=== PATIENT | female | born 1960 | race Caucasian/White ===

== ENCOUNTER 2018-09-11 11:49 | Emergency (ER) | payer OTHER, SELFPAY ==
[2018-09-11 11:52] VITALS: BP 127/85; PULSE 83; RESP 16; TEMP 36.7; O2SAT 97; BMI 32.9
--- NOTE | 2018-09-11 12:09 | ED.DCSUM_ITS ---
- ER Visit Summary Date of Service: 09/11/18 Chief Complaint: Right eye injury History of Present Illness: The patient is a 58 F presents to the emergency department with right eye injury. Patient states that she was burning brush. She states she went to break a branch snapped back and hit her in the eye. She does wear glasses but was not wearing them. She states that she is felt like she may have scratched her eye. She describes mild blurry vision. She is otherwise healthy. She denies any other injury. She denies any other symptoms. Physical Examination: Tetracaine was instilled in the right eye. Select examination was performed. Floor seen was instilled. Under slit-lamp, patient has multiple injuries that are visible. The patient has a 2 mm corneal abrasion at the 8 o'clock position overlying the iris. There is a 6 mm corneal laceration overlying the visual access. There is a 3 mm corneal abrasion at the 2 o'clock position overlying the iris. These do not travel deep. There is no evidence of contamination. Her pupil has no disruption or abnormal shape. There is no hyphema or hypopyon. There is no evidence of retained foreign body. Test Results: [] Emergency Department Course and Treatment: After slit-lamp examination, I did discuss the patient with Dr. Randhawa she is going to need very close follow-up. He agreed with plan for Pseudomonas coverage with eyedrops. Patient will be seen tomorrow in the office. I did disability counselor her that if anything changes, she is free to call Dr. Randhawa and he states that he would see her in the office tonight. The patient is comfortable with this plan of care. She will be discharged home. Treatment Plan: [] Disposition: Discharge Impression: 1. Corneal abrasion 2. Corneal laceration This note was generated with Cod[employer] dictation software. It may contain incorrect words, spelling, and punctuation that were not noted in review of the chart prior to signing ED Disposition - Plan for ED Patient: Disposition: Home or Assisted Living Instructions: Corneal Abrasion Prescriptions: Oxycodone HCl/Acetaminophen [Percocet 5/325] 1 tab PO Q6H PRN PRN 3 Days #12 tab PRN Reason: Pain Prescription Printed Tobramycin [Tobrex] 1 drp OPHTHALMIC (EYE) CONT 5 Days #5 ml Prescription Printed Referrals: Rome Randhawa MD [STAFF PHYSICIAN] -
[2018-09-11] MEDS: Fluorescein 1 MG STRIP 1 STRIP RIGHT EYE (12:39)
[2018-09-11] MEDS: Tetracaine 0.5% Ophthalmic Bottle 1 DRP RIGHT EYE (12:39)
[2018-09-11 13:05] VITALS: PULSE 88; RESP 16; O2SAT 98
[2018-09-11] MEDS: Tobramycin Sulf 0.3% 5ML OPTH.BTL 2 DRP RIGHT EYE (13:18)
--- NOTE | 2018-09-11 13:19 | ED.RN ---
REVIEWED D/C INSTRUCTIONS, FOLLOW UP CARE, PRESCRIPTIONS, AND S/S THAT WOULD WARRANT A RETURN TO THE ED WITH PT. PT VERBALIZED AN UNDERSTANDING AND DENIES FURTHER QUESTIONS FOR THIS RN. PT SKIN P/W/D, RESP EVEN AND UNLABORED, PT A&O X 3, NO DISTRESS NOTED. PT AMBULATED OUT OF ED, GAIT STEADY.
== END 2018-09-11 13:20 | disposition home or self-care (01) ==
LOC: ED 12:22
PROVIDERS: Emergency Provider Emergency Medicine
DX: S05.01XA Injury of conjunctiva and corneal abrasion without foreign body, right eye, initial encounter (principal); S05.31XA Ocular laceration without prolapse or loss of intraocular tissue, right eye, initial encounter; W22.8XXA Striking against or struck by other objects, initial encounter; Y93.9 Activity, unspecified; Y92.9 Unspecified place or not applicable; I10 Essential (primary) hypertension; Z79.899 Other long term (current) drug therapy
CPT/HCPCS: 99283; A4216

== ENCOUNTER 2020-01-06 10:36 | Emergency (ER) | payer OTHER, SELFPAY ==
[2020-01-06 10:37] VITALS: BP 133/73; PULSE 112; RESP 16; TEMP 36.2; O2SAT 97; BMI 30.9
--- NOTE | 2020-01-06 10:53 | CT_ITS ---
STUDY: CT ABDOMEN AND PELVIS WITH CONTRAST REASON FOR EXAM: Female, 59 years old. DIARRHEA X 5 DAYS. HISTORY OF DIVERTICULITIS. PRIOR APPENDECTOMY,UTERUS AND RIGHT OVARY REMOVED RADIATION DOSAGE (If Supplied By Facility): CTDIvol = ( 13.71 ) mGy, DLP = ( 989.71 ) mGycm TECHNIQUE: Transaxial images were obtained from the dome of the diaphragm to the symphysis pubis without oral contrast. IV 100mL Isovue-370 was administered. Sagittal and coronal images were reconstructed. Individualized dose optimization techniques were used for this CT. COMPARISON: 04/01/2012 FINDINGS: The visualized lung bases are unremarkable. The visualized portions of the heart are within normal limits. Normal liver. Normal gallbladder and extrahepatic biliary system. Normal spleen. Normal pancreas. Normal bilateral adrenal glands. Normal right kidney. Normal left kidney. Marked abnormality of the gastric antrum with wall thickening and edema and possible ulceration. Normal small intestine. Under distended loops of the descending and rectosigmoid colon with questionable pericolonic fat stranding and edema. Findings can be seen with diarrhea and/or colitis. No evidence of diverticulitis or perforation. The appendix is not clearly visualized Normal abdominal aorta. Normal inferior vena cava. Normal retroperitoneum. Normal urinary bladder. Status post hysterectomy Normal abdominal wall. Normal osseous structures. CT/Abdomen/Pelvis W IV Cont ONLY IMPRESSION: 1. Marked abnormality of the gastric antrum with wall thickening and edema and possible ulceration. Endoscopy should be considered to further evaluate when possible 2. Underdistended loops of descending and rectosigmoid colon with questionable pericolonic fat stranding and edema. Can be a sequela of diarrhea and/or colitis. No evidence of diverticulitis. Recommend clinical correlation Electronically Signed: Moose Rachel DO at 11:56 EDT Tel , Service support ,
--- NOTE | 2020-01-06 10:56 | ED.VIS.GI ---
History of Present Illness Informant: Patient - Abdominal Pain/Flank Pain Onset: Days - 5 days Context: Gradual Onset Timing: Intermittent Quality: Cramping Location: Diffuse Current Severity: Severe Maximum Severity: Severe Worsened by: Food Relieved by: Nothing, Remaining Still - Nausea/Vomiting/Emesis GI Symptom: Nausea. Negative for: Vomiting - Diarrhea/Melena/Hematochezia GI Symptom: Diarrhea Onset: Days - 5 days Stool Quality: Loose, Watery Severity: Severe Episodes: 3 Associated Symptoms: Negative for: Dysuria, Frequency, Hematuria, Urgency Narrative: 59-year-old female presents with abdominal pain and diarrhea. Patient was diagnosed earlier this month with diverticulitis completed a course of Cipro and Flagyl and felt improved. However over the last 5 days she has developed worsening abdominal pain and diarrhea. The pain is diffuse and crampy in nature. Nothing really makes it better or worse. She has had decreased appetite. She had a fever 100.8 ?F last evening. No melena or hematochezia. No urinary symptoms. No vomiting. She was tested negative for Covid and flu earlier this week by her primary. She was taking probiotics. She has not had improvement. Prior similar symptoms: Yes Recent Illness/Hospitalization: No <Alex Dey - Last Filed: 01/06/20 12:19> <Eladio Werner - Last Filed: 01/06/20 12:40> Chief Complaint: Diarrhea Past Medical History Prior records reviewed: Yes Past Medical History: - - Hypertension Surgical History: hysterectomy Lives: With Family Smoking Status: Never smoker Alcohol: None Drugs: None <Alex Dey - Last Filed: 01/06/20 12:19> <Eladio Werner - Last Filed: 01/06/20 12:40> - Allergies and Home Meds Allergies/Adverse Reactions: Allergies Penicillins [PCN] Allergy (Verified 01/06/20 10:41) Hives Primary Care Physician: Alex Stokes MD [STAFF PHYSICIAN] - As soon as possible Review of Systems General: Reports: Chills, Fever. Denies: Sweats Eyes: Denies: Visual changes - bilaterally, Diplopia ENT: Denies: Rhinorrhea, Sore throat Cardiovascular: Denies: Chest pain, Palpitations Respiratory: Denies: Dyspnea, Cough, Dyspnea on exertion Gastrointestinal: Reports: Abdominal pain, Nausea, Diarrhea. Denies: Vomiting, Constipation, Melena, Hematochezia Genitourinary: Denies: Dysuria, Hematuria, Frequency Musculoskeletal: Denies: Myalgias, Arthralgias, Neck pain, Back pain, Swelling, Extremity Pain Skin: Denies: Rash, Wounds Neurological: Denies: Headache, Weakness, Numbness <Alex Dey - Last Filed: 01/06/20 12:19> Physical Exam Vital Signs/Narrative: Vital Signs Temp Pulse Resp BP Pulse Ox 01/06/20 10:37 97.2 F L 112 H 16 133/73 H 97 Inital Vital Signs reviewed: Yes General: Well nourished, Well developed, No Acute Distress Head: Normocephalic, Atraumatic Eyes: Perrl, EOMI ENT: Moist mucous membranes, No rhinorrhea Neck: Supple, Nontender Cardiovascular: Regular rate, Regular rhythm, No murmurs Respiratory: No distress, CTA bilaterally, Chest nontender Abdomen: Soft, Nondistended, Normal bowel sounds, Tender - Diffusely tender no focal tenderness no guarding no rebound Back: Nontender, Normal Inspection Extremities: Nontender, No edema Skin: Normal color, No rash Neurological: Alert, Oriented x3, Cranial nerves II-XII grossly intact, Normal Strength, Normal Sensation Psychological: Normal affect, Normal Mood <Alex Dey - Last Filed: 01/06/20 12:19> Vital Signs/Narrative: Vital Signs Temp Pulse Resp BP Pulse Ox 01/06/20 10:37 97.2 F L 112 H 16 133/73 H 97 <Eladio Werner - Last Filed: 01/06/20 12:40> Diagnostic/Tx/Re-eval CT: Abdomen and Pelvis - Medical Decision Making Patient was treated with fluids morphine and Zofran. Laboratory work-up shows a white blood cell count of 12. The rest of her labs are unremarkable. We did send stool samples for culture and C. difficile. CT scan of the abdomen and pelvis with IV contrast demonstrates marked abnormality of the gastric antrum with wall thickening and edema possible ulceration. Endoscopy should be considered for further evaluation when possible. It also demonstrated under distended loops of descending and rectosigmoid colon with questionable pericolonic fat stranding and edema. Can be a sequela of diarrhea and/or colitis but there is no evidence of diverticulitis. Repeat exam patient feels improved. Abdomen is soft and nontender. Patient tolerating by mouth. Patient will be discharged home with Protonix and Augmentin and referred to surgery for follow-up and outpatient endoscopy and colonoscopy. Stool cultures were sent. She will be sent home with analgesia. Patient agreeable with plan all questions answered return precautions given. <Alex Dey - Last Filed: 01/06/20 12:19> - Medical Decision Making Attending note: I saw the patient independently. Patient has diarrhea with abdominal pain. History of gastric ulcers. Upper and lower endoscopies done 2 years ago by her physician. Vital signs reviewed. Abdomen diffusely tender. No guarding or rebound. Otherwise exam unremarkable. Diarrheal illness Labs, CT. Patient will be treated for gastric ulcer with PPI. She was treated with antibiotics to cover colitis. Stool studies are pending. She will follow-up for outpatient endoscopy and for her elevated liver enzymes. Return for any new or worsening issues. <Eladio Werner - Last Filed: 01/06/20 12:40> ED Disposition <Alex Dey - Last Filed: 01/06/20 12:19> <Eladio Werner - Last Filed: 01/06/20 12:40> - Plan for ED Patient: Disposition: Home or Assisted Living Diagnosis: Colitis, PUD (peptic ulcer disease) Instructions: ED Diarrhea Bacterial, ED PEPTIC ULCER vs GASTRITIS Prescriptions: Ciprofloxacin [Cipro] 500 mg PO BID #14 tab Transmission Status: Received by [facility] metroNIDAZOLE [Flagyl] 500 mg PO Q8H #21 tab Transmission Status: Received by [facility] Oxycodone HCl/Acetaminophen [Percocet 5/325] 1 tab PO Q6H PRN PRN 3 Days #12 tab PRN Reason: Pain Transmission Status: Received by [facility] Omeprazole [Prilosec] 40 mg PO DAILY #60 cap Transmission Status: Received by [facility] Ondansetron [Zofran Odt] 4 mg PO Q8H PRN PRN #10 tab PRN Reason: Nausea Transmission Status: Received by [facility] Referrals: Alex Stokes MD [STAFF PHYSICIAN] - As soon as possible
[2020-01-06 11:07] LABS: Hematocrit 41.7 % (37-47); Hemoglobin 13.6 g/dL (12.0-15.0); Mean Corp Hgb Conc 32.6 g/dL (32-36); Mean Corpuscular Volume 85.8 fL (81-99); Mean Platelet Vol. 9.8 fl (6.2-12.0); Mucous, Urine 0 SEEN /hpf (<or=2+); POSITIVE DIFFERENTIAL YES; POSITIVE MORPHOLOGY YES; Platelet Count 403 K/mm3 (150-450); RBC Distribution Width CV 13.2 % (11.6-14.6); Red Blood Count 4.86 M/mm3 (4.2-5.4); White Blood Count 12.8 K/mm3 (4.4-11.0)
[2020-01-06] MEDS: Morphine 4 MG/ML Syringe IV (11:11)
[2020-01-06] MEDS: Ondansetron 4 MG/2 ML Vial IV (11:11)
[2020-01-06] MEDS: 0.9% Normal Saline 1,000 ML 1000 ML IV (11:11)
[2020-01-06 11:15] LABS: Color, Urine Yellow (Yellow); Glucose, Dipstick Normal (Normal); Ketone-Dipstick Negative (Negative); Leukocyte Esterase-Dipstick 25 /ul (Negative); Nitrite-Dipstick Negative (Negative); Occult Blood-Urine 250 /ul (Negative); Protein-Dipstick 30 mg/dl (Negative); Urine Bilirubin Dipstick Negative (Negative); Urine Clarity Clear (Clear); Urine Urobilinogen Normal (Normal); Urine pH 6.5 (5.0 - 8.0)
[2020-01-06 11:23] LABS: Hyaline Cast 0-5 SEEN /lpf (0-5); Red Blood Cells-Urine 25-50 SEEN /hpf (0-5); Renal Epithelial Cells 0-5 SEEN /hpf (0-5); Squamous Epithelial Cells - UA 0-5 SEEN /hpf (5-10); White Blood Cells 0-5 SEEN /hpf (0-5)
[2020-01-06 11:24] LABS: Bacteria 2+ /hpf (None Seen)
[2020-01-06 11:25] LABS: ALB/GLOB Ratio 0.7 RATIO (0.9-2.4); AST(SGOT) 56 U/L (15-37); Alanine Aminotransfer ALT/SGPT 100 U/L (13-56); Albumin, Serum 2.9 g/dL (3.2-5.0); Alkaline Phosphatase 130 U/L (45-117); Anion Gap 8 (5-15); BUN 9 mg/dL (7-18); BUN/Creat Ratio 8.7 RATIO (10-20); Calcium,Total 9.1 mg/dL (8.5-10.1); Chloride 100 mmol/L (98-107); Creatinine, Serum 1.04 mg/dL (0.55-1.02); EST Glomerular Filtration Rate 58 mL/min (>60); Est Glom Filt Rate - Afr Amer 70 mL/min (>60); Globulin 3.9 g/dL (2.2-4.2); Glucose 153 mg/dL (74-106); Lipase 37 U/L (73-393); Potassium 3.4 mmol/L (3.5-5.1); Protein, Total 6.8 g/dL (6.4-8.2); Sodium Level 135 mmol/L (136-145)
[2020-01-06 11:28] LABS: Differential Indicated MANUAL DIFF
[2020-01-06 11:33] LABS: Basophil 1 % (0-1); Eosinophil 2 % (0-5); Lymphocyte 21 % (19-41); Metamyelocyte 1 % (0-1); Monocyte 16 % (0-10); Neutrophil-Band 38 % (0-5); Neutrophil-Segmented 21 % (47-70); Total Cells Counted 100 (MANUAL DIFF)
[2020-01-06 11:34] LABS: Absolute Lymphocyte Count 2.69 X10^3/uL (0.83-4.51); Absolute Neutrophil Count 7.5 X10^3/uL (2.0-7.7)
[2020-01-06 11:36] LABS: Platelet Estimate ADEQUATE (ADEQ); Reactive Lymphocyte 1+
[2020-01-06 11:38] LABS: Dohle Bodies 1+; Red Cell Morphology NORM C+C NORMAL (NORM C&C)
[2020-01-06 12:52] VITALS: BP 106/69; PULSE 85; RESP 16; O2SAT 96
--- NOTE | 2020-01-06 12:53 | ED.RN ---
IV DC'ED, CATHETER INTACT, SMALL GAUZE DRESSING PLACED. DISCHARGE INSTRUCTIONS GIVEN TO AND REVIEWED WITH PATIENT, PATIENT DENIES QUESTIONS OR CONCERNS AND VOICES UNDERSTANDING OF DISCHARGE INSTRUCTIONS. PT AMBULATES OUT OF ROOM WITHOUT DIFFICULTY.
--- NOTE | 2020-01-06 17:20 | ED.DCSUM_ITS ---
- ER Visit Summary Date of Service: 01/06/20 Chief Complaint: [] History of Present Illness: The patient is a 59 F [] Physical Examination: [] Test Results: [] Emergency Department Course and Treatment: [] Treatment Plan: [] Disposition: [] Impression: [] This note was generated with [employer]Wings.comation software. It may contain incorrect words, spelling, and punctuation that were not noted in review of the chart prior to signing ED Disposition - Plan for ED Patient: Disposition: Home or Assisted Living Diagnosis: Colitis, PUD (peptic ulcer disease) Instructions: ED Diarrhea Bacterial, ED PEPTIC ULCER vs GASTRITIS Prescriptions: Ciprofloxacin [Cipro] 500 mg PO BID #14 tab Transmission Status: Received by [facility] metroNIDAZOLE [Flagyl] 500 mg PO Q8H #21 tab Transmission Status: Received by [facility] Oxycodone HCl/Acetaminophen [Percocet 5/325] 1 tab PO Q6H PRN PRN 3 Days #12 tab PRN Reason: Pain Transmission Status: Received by [facility] Omeprazole [Prilosec] 40 mg PO DAILY #60 cap Transmission Status: Received by [facility] Vancomycin HCl 125 mg PO 4X/DAY #40 cap Transmission Status: Pending to [facility] Ondansetron [Zofran Odt] 4 mg PO Q8H PRN PRN #10 tab PRN Reason: Nausea Transmission Status: Received by [facility] Referrals: Alex Stokes MD [STAFF PHYSICIAN] - As soon as possible
--- NOTE | 2020-01-06 17:42 | ED.RN ---
LAB CALLS STATING STOOL STUDIES + FOR C-DIFF. Jessica TAMEZ MADE AWARE, INSTRUCTED TO DISCONTINUE CIPRO AND FLAGYL, VANCOMYCIN ORDERED TO PATIENTS PREFERRED PHARMACY. PATIENT MADE AWARE AND REPORTS UNDERSTANDING OF INSTRUCTIONS.
[2020-01-08 14:01] LABS: Pathologist Review Reviewed
== END 2020-01-06 12:54 | disposition home or self-care (01) ==
PROVIDERS: Emergency Provider Physician Assistant Medical
DX: K52.9 Noninfective gastroenteritis and colitis, unspecified (principal); K27.9 Peptic ulcer, site unspecified, unspecified as acute or chronic, without hemorrhage or perforation; I10 Essential (primary) hypertension; Z79.899 Other long term (current) drug therapy; Z87.19 Personal history of other diseases of the digestive system
CPT/HCPCS: 74177; 80053; 81001; 83690; 85025; 87493; 87506; 96361; 96374; 96375; 99282; J7030; Q9967; A4216; J2405

== ENCOUNTER 2022-09-07 08:38 | Emergency (ER) | payer OTHER, SELFPAY ==
[2022-09-07 08:39] VITALS: BP 107/80; PULSE 99; RESP 18; TEMP 36.3; O2SAT 96; BMI 34.7
--- NOTE | 2022-09-07 08:51 | CT_ITS ---
STUDY: CT ABDOMEN AND PELVIS WITH CONTRAST REASON FOR EXAM: Female, 62 years old. 2 day history of left lower quadrant pain. History of prior diverticulitis. RADIATION DOSAGE (If Supplied By Facility): CTDIvol = ( 15.93 ) mGy, DLP = ( 1101.23 ) mGycm TECHNIQUE: Transaxial images were obtained from the dome of the diaphragm to the symphysis pubis without oral contrast. IV 100mL Isovue-300 was administered. Sagittal and coronal images were reconstructed. Individualized dose optimization techniques were used for this CT. COMPARISON: Comparison is made with prior study dated January 06, 2020. FINDINGS: The visualized lung bases are unremarkable. Coronary artery calcification. There is decreased attenuation of the liver consistent with steatosis. Normal gallbladder and extrahepatic biliary system. There is a 3.2 cm x 3.9 cm cystic nodule in the superior anterior aspect of the spleen. This has increased in size as compared to prior study. Normal pancreas. Normal bilateral adrenal glands. Normal right kidney. Normal left kidney. There is a small hiatal hernia. Normal small intestine. Moderate amount of fecal material is seen in the cecum and ascending colon. There are surgical clips in the region of the appendix consistent with a prior appendectomy. Normal abdominal aorta. Normal inferior vena cava. There is borderline retroperitoneal lymphadenopathy with enlarged nodes no greater than 10mm in the short axis diameter. Normal urinary bladder. There is absence of the uterus consistent with a prior hysterectomy. There is a 2.2 cm x 1.8 cm cyst in the left ovary. There is a small umbilical hernia containing fat. There are mild degenerative changes of the visualized lumbar spine. CT/Abdomen/Pelvis W IV Cont ONLY IMPRESSION: 2.2 cm x 1.8 cm cyst in the left ovary. The patient is status post hysterectomy and appendectomy. Small ventral hernia. 3.2 cm x 3.9 cm splenic cyst. Electronically Signed: Cas Plata MD at 10:49 EDT ,
--- NOTE | 2022-09-07 08:53 | ED.VIS.GI ---
HPI HPI - GI History of Present Illness Chief Complaint: Abd Pain Informant: patient Narrative Narrative: 3 days gradual onset left-sided abdominal discomfort and just feeling poorly, occasional nausea no vomiting, pain worse since last night and focused in the left mid abdomen, and developed a fever of 100.4 this morning. Feels similar to episode of diverticulitis she had in the past. She has never had to have a bowel resection. She has had prior abdominal surgeries. She denies any blood in her stool, she has had some constipation lately. [facility] Medical History Anxiety and depression Diverticulitis Hypertension Home Medications albuterol sulfate 90 mcg/actuation aerosol inhaler 1 puff inhalation DAILY PRN Shortness Of Breath Or Wheezing 09/11/18 [History Last Taken 01/06/20] losartan 50 mg tablet 50 mg PO DAILY 09/11/18 [History Last Taken 01/06/20] beclomethasone dipropionate 80 mcg/actuation HFA breath activated aerosol 2 puff inhalation BID PRN Shortness Of Breath Or Wheezing 01/06/20 [History Last Taken 01/06/20] sertraline 100 mg tablet 50 mg PO DAILY 01/06/20 [History Last Taken 01/06/20] dicyclomine 10 mg capsule 20 mg PO Q6H PRN PRN abdominal pain #30 CAPSULES 09/07/22 [Rx Last Taken Unknown] Allergy/AdvReac Type Severity Reaction Status Date / Time Penicillins [PCN] Allergy Hives Verified 09/07/22 08:44 Surgical History (Updated 09/07/22 @ 08:53 by Maura España) H/O: hysterectomy History of appendectomy Social History Smoking Status: Never smoker ROS ROS ED Constitutional Constitutional ED: Reports fever(s); Denies chills Eyes Eyes: Denies change in vision or diplopia ENT ENT ED: Denies rhinorrhea or sore throat Cardiovascular Cardiovascular: Denies chest pain or palpitations Respiratory/Chest Respiratory/Chest: Denies cough or dyspnea Gastrointestinal Gastrointestinal: Reports abdominal pain, constipation and nausea; Denies diarrhea, hematochezia, melena or vomiting Genitourinary Genitourinary ED: Denies dysuria or hematuria Musculoskeletal Musculoskeletal: Denies back pain or neck pain Integumentary Denies abscess or rash Neurologic Neurologic: Denies headache(s), paresthesias or weakness Psychiatric Psychiatric: Denies anxiety or suicidal thoughts EXAM Physical Exam Const Vital Signs: 09/07/22 08:39 09/07/22 10:38 Temperature 97.3 F L Temperature Source Temporal Pulse Rate 99 66 Respiratory Rate 18 16 Blood Pressure 107/80 96/72 Blood Pressure Mean 89 80 Pulse Ox 96 96 Oxygen Delivery Method Room Air Room Air Positive well nourished and well developed General Appearance ED: well developed and NAD HEENT Reports moist mucous membranes normocephalic and atraumatic Eyes PERRL and EOMs intact bilaterally Neck full ROM and supple Resp normal respiratory effort and clear to auscultation bilaterally Cardio regular rate, regular rhythm and no murmurs GI non-distended GI Narrative: Tender in the left lateral mid abdomen, no guarding or rebound or pulsatile mass. No [place] sign. No Cadena Wilkinson sign. No CVA tenderness. Auscultation: normoactive bowel sounds Palpation: soft Back/Spine no CVA tenderness General Back: other FROM Extremity normal to inspection General Extremety ED: Negative for edema, pulses abnormal or tenderness General Extremity: Negative for edema or pulses abnormal Neuro oriented x3, CN's II-XII intact bilaterally and no sensory deficits noted Sensorium / Orientation: awake and alert Motor Exam: strength 5/5 throughout Psych mental status grossly normal and thought process normal Skin no rashes or lesions noted and no wounds MDM MDM MDM Narrative Medical decision making narrative: Suspect diverticulitis although kidney stone, urinary tract infection, bowel obstruction also in the differential but thought all to be less likely given her history, but since she developed a fever I think getting a CT is reasonable in order to rule out complications of straightforward diverticulitis. This was done in the CT images i.e. looked at, reviewed the report and agree with it, negative for diverticulitis or anything else acute. Her urine, however, shows every indicators for infection. In speaking with her further, she confirms she has no urinary symptoms and in fact, 6 weeks ago she had a urinary tract infection and she had all of the symptoms including bladder pressure, dysuria, and frequency, none of which she has now. She had C. difficile in the past and this is with Cipro and Flagyl. She had a difficult time getting rid of the C. difficile. I certainly do not want her to get that again neither does she, so we are not doing empiric antibiotics, rather we are sending her urine for culture and having her follow-up in treating her left-sided abdominal pain with dicyclomine prn, empirically treating possible bowel discomfort without infectious or inflammatory etiology. She is comfortable with that plan will follow-up we discussed reasons to return. Lab Data Attestation: I reviewed the patient's lab results. Labs: Laboratory Results - last 24 hr 09/07/22 09/07/22 09/07/22 09:00 09:00 09:27 WBC 10.2 RBC 4.66 Hgb 13.1 Hct 40.8 MCV 87.6 MCH 28.1 MCHC 32.1 RDW Std Deviation 43.2 RDW Coeff of Bindu 13.5 Plt Count 282 MPV 9.8 Immature Gran % (Auto) 0.500 Neut % (Auto) 78.7 H Lymph % (Auto) 11.0 L [place] % (Auto) 8.8 Eos % (Auto) 0.7 Baso % (Auto) 0.3 Absolute Neuts (auto) 8.1 H Absolute Lymphs (auto) 1.12 Nucleated RBC % 0 Sodium 137 Potassium 3.4 L Chloride 105 Carbon Dioxide 24.0 Anion Gap 8 BUN 9 Creatinine 0.91 Estim Creat Clear Calc 52.00 Est GFR (MDRD) Af Amer 81 Est GFR (MDRD) Non-Af 67 BUN/Creatinine Ratio 9.9 L Glucose 119 H Calcium 9.3 Urine Color Yellow Urine Clarity Sl. Cloudy Urine pH 6.0 Ur Specific [place] 1.015 Urine Protein 30 H Urine Glucose (UA) Normal Urine Ketones 15 H Urine Occult Blood 250 H Urine Nitrite Positive H Urine Bilirubin Negative Urine Urobilinogen Normal Ur Leukocyte Esterase 500 H Urine RBC 25-50 SEEN Urine WBC 25-50 SEEN Ur Squamous Epith Cells 0-5 SEEN Urine Bacteria 2+ Urine Mucus 0 SEEN Radiography Diagnostic Testing: Clinical Impression(s) from Imaging Studies Abdomen/Pelvis CT 09/07/22 08:51 IMPRESSION: 2.2 cm x 1.8 cm cyst in the left ovary. The patient is status post hysterectomy and appendectomy. Small ventral hernia. 3.2 cm x 3.9 cm splenic cyst. Electronically Signed: Cas Plata MD at 10:49 EDT , Discharge Plan Triage Chief Complaint: Abd Pain ED Provider: Saroj Vizcarra Dx/Rx/DC Orders Clinical Impression: Left sided abdominal pain, Abnormal urinalysis Instructions: Abdominal Pain Prescriptions: New dicyclomine 10 mg capsule 20 mg PO Q6H PRN PRN (Reason: abdominal pain) Qty: 30 0RF No Action losartan 50 MG tablet 50 mg PO DAILY Label Comments: Take 1 tablet by mouth once daily. albuterol sulfate 8.5 GM HFA aerosol inhaler 1 puff inhalation DAILY PRN (Reason: Shortness Of Breath Or Wheezing) sertraline 100 MG tablet 50 mg PO DAILY beclomethasone dipropionate 10.6 GM HFA aerosol breath activated 2 puff INHALATION BID PRN (Reason: Shortness Of Breath Or Wheezing) Label Comments: Inhale 2 Puffs as instructed twice daily. Primary Care Provider: Care Physician,No Primary Referrals: NOT,DEFINED [Non-Staff] - Doctor,Your [Non-Staff] - 3-5 Days if not improving Disposition Disposition: Home, Self Care
[2022-09-07] MEDS: Ondansetron 4 MG/2 ML Vial IV (09:17)
[2022-09-07] MEDS: Ketorolac 15 MG/ML Vial IV (09:17)
[2022-09-07] MEDS: 0.9% Normal Saline 1,000 ML 125 ML IV (09:17)
[2022-09-07 09:18] LABS: Absolute Lymphocyte Count 1.12 X10^3/uL (0.83-4.51); Absolute Neutrophil Count 8.1 X10^3/uL (2.0-7.7); Basophil# 0.03 X10^3/uL; Basophil% 0.3 % (0-1); Eosinophil# 0.07 X10^3/uL; Eosinophils% 0.7 % (0-5); Hematocrit 40.8 % (37-47); Hemoglobin 13.1 g/dL (12.0-15.0); Lymphocyte # 1.12 X10^3/ul (0.83-4.51); Mean Corp Hgb Conc 32.1 g/dL (32-36); Mean Corpuscular Hgb 28.1 pg (27.0-32.0); Mean Corpuscular Volume 87.6 fL (81-99); Mean Platelet Vol. 9.8 fl (6.2-12.0); Monocyte% 8.8 % (0-10); NRBC Flagged by Analyzer 0 % (0-5); Neutrophil # 8.05 X10^3/uL (2.7-7.7); Neutrophil % 78.7 % (47-70); Platelet Count 282 K/mm3 (150-450); RBC Distribution Width CV 13.5 % (11.6-14.6); RBC Distribution Width SD 43.2 fl (35.1-43.9); Red Blood Count 4.66 M/mm3 (4.2-5.4); White Blood Count 10.2 K/mm3 (4.4-11.0)
[2022-09-07 09:33] LABS: Mucous, Urine 0 SEEN /hpf (<or=2+)
[2022-09-07 09:35] LABS: Color, Urine Yellow (Yellow); Glucose, Dipstick Normal (Normal); Ketone-Dipstick 15 mg/dl (Negative); Leukocyte Esterase-Dipstick 500 /ul (Negative); Nitrite-Dipstick Positive (Negative); Occult Blood-Urine 250 /ul (Negative); Protein-Dipstick 30 mg/dl (Negative); Specific Gravity, Urine 1.015 (1.002-1.030); Urine Bilirubin Dipstick Negative (Negative); Urine Clarity Sl. Cloudy (Clear); Urine Urobilinogen Normal (Normal)
[2022-09-07 09:36] LABS: Anion Gap 8 (5-15); BUN 9 mg/dL (7-18); BUN/Creat Ratio 9.9 RATIO (10-20); Calcium,Total 9.3 mg/dL (8.5-10.1); Chloride 105 mmol/L (98-107); Creatinine, Serum 0.91 mg/dL (0.55-1.02); EST Glomerular Filtration Rate 67 mL/min (>60); Est Glom Filt Rate - Afr Amer 81 mL/min (>60); Glucose 119 mg/dL (74-106); Potassium 3.4 mmol/L (3.5-5.1); Sodium Level 137 mmol/L (136-145)
[2022-09-07 09:41] LABS: Squamous Epithelial Cells - UA 0-5 SEEN /hpf (5-10)
[2022-09-07 09:42] LABS: Bacteria 2+ /hpf (None Seen); Red Blood Cells-Urine 25-50 SEEN /hpf (0-5); White Blood Cells 25-50 SEEN /hpf (0-5)
[2022-09-07 10:38] VITALS: BP 96/72; PULSE 66; RESP 16; O2SAT 96
[2022-09-07 11:00] VITALS: BP 113/64; PULSE 80; RESP 16; TEMP 37.4; O2SAT 95
[2022-09-07] MEDS: Dicyclomine 10 MG Capsule 20 MG PO (11:08)
== END 2022-09-07 11:11 | disposition home or self-care (01) ==
PROVIDERS: Emergency Provider Emergency Medicine; Visit Provider Emergency Medicine
DX: R10.9 Unspecified abdominal pain (principal); R82.998 Other abnormal findings in urine; I10 Essential (primary) hypertension; R11.0 Nausea; R50.9 Fever, unspecified; K59.00 Constipation, unspecified; Z87.19 Personal history of other diseases of the digestive system; Z86.19 Personal history of other infectious and parasitic diseases
CPT/HCPCS: 74177; 80048; 81001; 85025; 87086; 87088; 87186; 96361; 96374; 96375; 99284; J7030; Q9967; A4216; J2405

== ENCOUNTER 2022-10-22 12:36 | Emergency (ER) | payer OTHER, SELFPAY ==
[2022-10-22 12:37] VITALS: BP 136/81; PULSE 80; RESP 14; TEMP 36.6; O2SAT 98; BMI 33.7
--- NOTE | 2022-10-22 13:25 | EKG12_ITS ---
Test Reason : CP Blood Pressure : / mmHG Vent. Rate : 074 BPM Atrial Rate : 074 BPM P-R Int : 130 ms QRS Dur : 086 ms QT Int : 408 ms P-R-T Axes : 043 -04 036 degrees QTc Int : 452 ms Normal sinus rhythm Normal ECG Confirmed by CHELA WIGGINS, STEPHENIE ([id number]), fashion editor AARON VIVAR ([id number]) on 10/26/2022 8:19:24 AM Referred By: EBER/DOTTIE Confirmed By:EMILY YORK MD
--- NOTE | 2022-10-22 13:28 | EDS_ITS ---
HPI <DASHAWN De Leon - Last Filed: 10/22/22 15:05> History of Present Illness Chief Complaint: Chest Pain Narrative Narrative: Patient presenting today due to left-sided chest pain that radiates into her left shoulder and left upper back that she has had since Wednesday. She reports that on Wednesday she began a new medication, Adipex for weight loss described by her PCP. She reports that earlier in the week she just was not feeling well and on Wednesday began to have midsternal chest discomfort that radiated into the left side intermittently. She reports a history of hiatal hernia and gastric ulcer and thought that maybe that was what was causing her pain. The pain worsened this morning and moved more to the left side. She reports that it is aching and intermittent. She reports a history of hypertension. She reports that her mother has a history of coronary artery disease with stent placement but no other pertinent family history of heart disease. PE Risk Factors: Negative for Recent Travel/Surgery, Recent Immobilization, Prior DVT or PE, Cancer or OCP + Smoking + >/=35 PFSH <DASHAWN De Leon - Last Filed: 10/22/22 15:05> [facility] Medical History Anxiety and depression Diverticulitis Hypertension Home Medications albuterol sulfate 90 mcg/actuation aerosol inhaler 1 puff inhalation DAILY PRN Shortness Of Breath Or Wheezing 09/11/18 [History Last Taken 01/06/20] losartan 50 mg tablet 50 mg PO DAILY 09/11/18 [History Last Taken 01/06/20] beclomethasone dipropionate 80 mcg/actuation HFA breath activated aerosol 2 puff inhalation BID PRN Shortness Of Breath Or Wheezing 01/06/20 [History Last Taken 01/06/20] sertraline 100 mg tablet 50 mg PO DAILY 01/06/20 [History Last Taken 01/06/20] dicyclomine 10 mg capsule 20 mg (2 x 10 mg) PO Q6H PRN PRN abdominal pain #30 CAPSULES 09/07/22 [Rx Last Taken Unknown] nitrofurantoin monohydrate/macrocrystals 100 mg capsule 100 mg PO Q12 #10 CAPSULES 09/09/22 [Rx Last Taken Unknown] Allergy/AdvReac Type Severity Reaction Status Date / Time Penicillins [PCN] Allergy Hives Verified 10/22/22 12:37 Surgical History H/O: hysterectomy History of appendectomy Social History Smoking Status: Never smoker ROS <DASHAWN De Leon - Last Filed: 10/22/22 15:05> ROS ED Constitutional Constitutional ED: Denies chills or fever(s) Eyes Eyes: Denies change in vision Cardiovascular Cardiovascular: Denies chest pain or palpitations Respiratory/Chest Respiratory/Chest: Denies cough, dyspnea, tachypnea or wheezing Gastrointestinal Gastrointestinal: Denies abdominal pain, constipation, diarrhea, nausea or vomiting Genitourinary Genitourinary ED: Denies dysuria, hematuria or urinary urgency Musculoskeletal Musculoskeletal: Denies arthralgias, back pain, myalgias or neck pain Integumentary Denies abscess, Abrasions or rash Neurologic Neurologic: Denies confusion, dizziness or paresthesias Psychiatric Psychiatric: Denies anxiety, depression, suicidal ideation or suicidal thoughts Allergic/Immunologic Allergic/Immunologic ED: Denies lip swelling, mouth swelling or urticaria EXAM <DASHAWN De Leon - Last Filed: 10/22/22 15:05> Physical Exam Const Vital Signs: 10/22/22 12:37 10/22/22 13:25 10/22/22 14:36 Temperature 98 F Temperature Source Temporal Pulse Rate 80 Respiratory Rate 14 Respiratory Effort Normal Non-Labored Blood Pressure 136/81 H 131/82 H Blood Pressure Mean 99 98 Pulse Ox 98 Oxygen Delivery Method Room Air 10/22/22 14:40 Temperature Temperature Source Pulse Rate Respiratory Rate Respiratory Effort Blood Pressure 132/82 H Blood Pressure Mean Pulse Ox Oxygen Delivery Method Positive well nourished, well developed and no apparent distress General Appearance ED: well developed HEENT Reports normocephalic and head/scalp atraumatic Mouth ED: Yes moist mucous membranes normal Eyes PERRL and EOMs intact bilaterally Neck full ROM and supple Chest Wall inspection of chest normal Resp normal respiratory effort and clear to auscultation bilaterally Cardio regular rate and regular rhythm GI soft to palpation, non-tender, non-distended and no masses Back/Spine normal ROM and normal to inspection Extremity normal to inspection and full ROM Neuro oriented x3, CN's II-XII intact bilaterally, moves all extremities, no focal m otor deficits and no sensory deficits noted Sensorium / Orientation: awake and alert Psych mental status grossly normal and thought process normal Skin no rashes or lesions noted and no wounds <Dr. Marco Pyle, DO - Last Filed: 10/22/22 14:38> Physical Exam Const Vital Signs: 10/22/22 12:37 10/22/22 13:25 10/22/22 14:36 Temperature 98 F Temperature Source Temporal Pulse Rate 80 Respiratory Rate 14 Respiratory Effort Normal Non-Labored Blood Pressure 136/81 H 131/82 H Blood Pressure Mean 99 98 Pulse Ox 98 Oxygen Delivery Method Room Air 10/22/22 14:40 Temperature Temperature Source Pulse Rate Respiratory Rate Respiratory Effort Blood Pressure 132/82 H Blood Pressure Mean Pulse Ox Oxygen Delivery Method <DASHAWN De Leon - Last Filed: 10/22/22 15:05> Heart Score Score: 3 <Dr. Marco Pyle, DO - Last Filed: 10/22/22 14:38> Heart Score History: Moderately Suspicious ECG: Normal Age: >45 - <65 years Risk Factors: 1 or 2 Risk Factors Troponin: </= Normal Limit Score: 3 MDM <DASHAWN De Leon - Last Filed: 10/22/22 15:05> MDM MDM Narrative Medical decision making narrative: Patient presenting today due to left-sided chest pain that she has had intermittently since Wednesday but worsened this morning. She denies a history of any cardiac conditions. Risk factors include hypertension and family history of CAD. She has a well score of 0. Labs will be obtained to rule out leukocytosis, anemia, electrolyte abnormality, ACS. Chest x-ray be obtained to rule out infiltrate, pneumothorax, and other cardiopulmonary abnormality and is negative for any acute findings, labs overall are unremarkable, troponin is 4. Patient has a heart score of 3. She has not had a stress test done in a few years, I have encouraged her to follow-up with her PCP in 3-5 days to have this performed. She has been given strict return instructions and will be discharged home in stable condition. She is comfortable with plan. Lab Data Attestation: I reviewed the patient's lab results. Labs: Laboratory Results - last 24 hr 10/22/22 13:34 WBC 8.2 RBC 4.78 Hgb 13.3 Hct 41.8 MCV 87.4 MCH 27.8 MCHC 31.8 L RDW Std Deviation 44.5 H RDW Coeff of Bindu 13.9 Plt Count 362 MPV 10.2 Immature Gran % (Auto) 0.200 Neut % (Auto) 58.9 Lymph % (Auto) 31.6 [place] % (Auto) 6.9 Eos % (Auto) 1.6 Baso % (Auto) 0.8 Absolute Neuts (auto) 4.9 Absolute Lymphs (auto) 2.60 Nucleated RBC % 0 Sodium 137 Potassium 3.7 Chloride 104 Carbon Dioxide 29.0 Anion Gap 4 L BUN 9 Creatinine 0.84 Estim Creat Clear Calc 56.33 Est GFR (MDRD) Af Amer 89 Est GFR (MDRD) Non-Af 73 BUN/Creatinine Ratio 10.7 Glucose 101 Calcium 10.1 Troponin I High Sens 4 Radiography X-Ray: Read by ED Physician and Read by Radiologist Diagnostic Testing: Clinical Impression(s) from Imaging Studies Chest X-Ray 10/22/22 13:39 IMPRESSION: Normal x-ray examination of the chest. Electronically Signed: Cas Plata MD at 14:01 EDT , EKG Initial EKG: Comments: normal sinus rhythm with a rate of 74. MA interval, QRS interval, and QTc intervals were all normal. [place] was normal. There are no acute ST or T wave changes. <Dr. Marco Pyle, DO - Last Filed: 10/22/22 14:38> [facility] Lab Data Labs: Laboratory Results - last 24 hr 10/22/22 13:34 WBC 8.2 RBC 4.78 Hgb 13.3 Hct 41.8 MCV 87.4 MCH 27.8 MCHC 31.8 L RDW Std Deviation 44.5 H RDW Coeff of Bindu 13.9 Plt Count 362 MPV 10.2 Immature Gran % (Auto) 0.200 Neut % (Auto) 58.9 Lymph % (Auto) 31.6 [place] % (Auto) 6.9 Eos % (Auto) 1.6 Baso % (Auto) 0.8 Absolute Neuts (auto) 4.9 Absolute Lymphs (auto) 2.60 Nucleated RBC % 0 Sodium 137 Potassium 3.7 Chloride 104 Carbon Dioxide 29.0 Anion Gap 4 L BUN 9 Creatinine 0.84 Estim Creat Clear Calc 56.33 Est GFR (MDRD) Af Amer 89 Est GFR (MDRD) Non-Af 73 BUN/Creatinine Ratio 10.7 Glucose 101 Calcium 10.1 Troponin I High Sens 4 Radiography Diagnostic Testing: Clinical Impression(s) from Imaging Studies Chest X-Ray 10/22/22 13:39 IMPRESSION: Normal x-ray examination of the chest. Electronically Signed: Cas Plata MD at 14:01 EDT , Treatment and Re-Evaluation :: I have personally performed a face to face assessment of the patient and have reviewed the BARRERA Note. I performed a substantive portion of the visit including all aspects of the following. My lopez findings include: History: Patient presents with chest pain that has been intermittent since yesterday. Patient describes her pain as dull ache. Patient states that at times it feels like there is a squeezing. Patient states that when her pain comes on last for approximately 1 hour. Patient states it then resolves and stays away for several hours. Patient denies any shortness of breath. Patient denies any nausea or vomiting. Patient denies any diaphoresis. Patient denies any fevers or chills. Patient states nothing makes her pain better and nothing makes it worse. Exam: Vital signs are stable except for mildly elevated blood pressure of 136/81. Patient is afebrile. Patient is in no acute distress. Oral mucosa is pink and moist. Neck is supple. Trachea is midline. There is no JVD. Heart was regular rate and rhythm. Lungs are clear and equal bilaterally. Abdomen is soft. Bowel sounds are normal. There is no tenderness. Cranial nerves II through XII are intact. There are no focal motor or sensory deficits noted. Medical Decision Making: Differential diagnosis includes cardiac dysrhythmia, cardiac ischemia, pneumonia, pneumothorax, musculoskeletal pain, and anxiety. EKG will be obtained to assess for cardiac dysrhythmia and cardiac ischemia. Chest x-ray will be obtained to assess for pneumonia and pneumothorax. CBC will be obtained to assess for leukocytosis and anemia. Basic metabolic profile will be obtained to assess for electrolyte abnormality and renal function. High-sensitivity troponin will be obtained to assess for cardiac ischemia. EKG was obtained. On my independent interpretation, it showed a normal sinus rhythm with a rate of 74. MA interval, QRS interval, and QTc intervals were all normal. [place] was normal. There are no acute ST or T wave changes. Portable 1 view chest x-ray was obtained. On my independent interpretation, lung curran are clear. There is normal cardiac silhouette. Bony thorax is normal. There is no acute process noted. Radiologist also interpreted the x-ray and agrees. CBC was reviewed and was within normal limits. Basic metabolic profile was reviewed and was within normal limits. High-sensitivity troponin was reviewed and was normal. Patient was advised of her findings. Patient has a HEART score of 3. Patient was advised that this is low risk for acute cardiac event. Patient was instructed to follow-up with her primary care physician in 5 to 7 days for further evaluation. Patient understood and was agreeable with the plan. All questions were answered. Discharge Plan Triage Chief Complaint: Chest Pain ED Midlevel Provider: Jory Gamble ED Provider: Marco Pyle Dx/Rx/DC Orders Clinical Impression: Chest pain Instructions: ED Chest Pain, Uncertain Cause Prescriptions: No Action losartan 50 MG tablet 50 mg PO DAILY Patient Comments: Take 1 tablet by mouth once daily. albuterol sulfate 8.5 GM HFA aerosol inhaler 1 puff inhalation DAILY PRN (Reason: Shortness Of Breath Or Wheezing) sertraline 100 MG tablet 50 mg PO DAILY beclomethasone dipropionate 10.6 GM HFA aerosol breath activated 2 puff INHALATION BID PRN (Reason: Shortness Of Breath Or Wheezing) Patient Comments: Inhale 2 Puffs as instructed twice daily. dicyclomine 10 mg capsule 20 mg PO Q6H PRN PRN (Reason: abdominal pain) Qty: 30 0RF nitrofurantoin monohyd/m-cryst [nitrofurantoin monohyd/m-cryst] 100 mg capsule 100 mg PO Q12 Qty: 10 0RF Primary Care Provider: ERIN HOLLIS Referrals: ERIN HOLLIS [Other] - 3-5 Days Activity Restrictions/Additional Instructions: Please follow-up with your PCP and return for any worsening of your symptoms. Disposition Disposition: Home, Self Care Discharge Date/Time: 10/22/22 14:43
[2022-10-22] MEDS: Aspirin 81 MG TAB.CHEW 324 MG PO (13:30)
--- NOTE | 2022-10-22 13:39 | RAD_ITS ---
STUDY: X-RAY CHEST REASON FOR EXAM: Female, 62 years old. Chest pain TECHNIQUE: Single AP portable view of the chest. COMPARISON: None. FINDINGS: EKG electrodes are seen. Hyperinflation. The lungs are clear. There is no demonstrated pleural abnormality. Normal size heart. Normal mediastinum and claudia. Normal visualized pulmonary arteries. Normal visualized aortic arch and descending thoracic aorta. Normal visualized thoracic spine. Normal visualized ribs, clavicles, and shoulders. There is no demonstrated abnormality of the visualized soft tissue structures of the upper abdomen. RAD/Chest 1 View (Portable) IMPRESSION: Normal x-ray examination of the chest. Electronically Signed: Cas Plata MD at 14:01 EDT ,
[2022-10-22 13:41] LABS: Absolute Neutrophil Count 4.9 X10^3/uL (2.0-7.7); Basophil# 0.07 X10^3/uL; Basophil% 0.8 % (0-1); Eosinophil# 0.13 X10^3/uL; Eosinophils% 1.6 % (0-5); Hematocrit 41.8 % (37-47); Hemoglobin 13.3 g/dL (12.0-15.0); Lymphocyte % 31.6 % (19-41); Mean Corp Hgb Conc 31.8 g/dL (32-36); Mean Corpuscular Hgb 27.8 pg (27.0-32.0); Mean Corpuscular Volume 87.4 fL (81-99); Mean Platelet Vol. 10.2 fl (6.2-12.0); Monocyte# 0.57 X10^3/uL; Monocyte% 6.9 % (0-10); NRBC Flagged by Analyzer 0 % (0-5); Neutrophil # 4.85 X10^3/uL (2.7-7.7); Neutrophil % 58.9 % (47-70); Platelet Count 362 K/mm3 (150-450); RBC Distribution Width CV 13.9 % (11.6-14.6); RBC Distribution Width SD 44.5 fl (35.1-43.9); Red Blood Count 4.78 M/mm3 (4.2-5.4); White Blood Count 8.2 K/mm3 (4.4-11.0)
[2022-10-22 14:03] LABS: Anion Gap 4 (5-15); BUN 9 mg/dL (7-18); BUN/Creat Ratio 10.7 RATIO (10-20); Calcium,Total 10.1 mg/dL (8.5-10.1); Chloride 104 mmol/L (98-107); Creatinine, Serum 0.84 mg/dL (0.55-1.02); EST Glomerular Filtration Rate 73 mL/min (>60); Est Glom Filt Rate - Afr Amer 89 mL/min (>60); Estimated Creatinine Clearance 56.33 ml/min; Glucose 101 mg/dL (74-106); Potassium 3.7 mmol/L (3.5-5.1); Sodium Level 137 mmol/L (136-145); Troponin-I HS 4 pg/mL (3.0-54.0)
[2022-10-22 14:36] VITALS: BP 131/82
[2022-10-22 14:40] VITALS: BP 132/82
== END 2022-10-22 14:43 | disposition home or self-care (01) ==
PROVIDERS: Physician Assistant; Emergency Provider Emergency Medicine; Visit Provider Emergency Medicine
DX: R07.9 Chest pain, unspecified (principal); M25.512 Pain in left shoulder; I10 Essential (primary) hypertension; F32.A Depression, unspecified; F41.9 Anxiety disorder, unspecified; Z79.899 Other long term (current) drug therapy
CPT/HCPCS: 71045; 80048; 84484; 85025; 93005; 99285; A4216